=== PATIENT | male | born 1960 | race Caucasian/White ===

== ENCOUNTER → 2024-05-21 06:32 | Day surgery (SDC) | payer BC, SELFPAY | LOC: GI 06:32 | PROVIDERS: ATTENDING PHYSICIAN Internal Medicine | DX: Z12.11 Encounter for screening for malignant neoplasm of colon (principal); Z86.010 Personal history of colon polyps; K64.9 Unspecified hemorrhoids; K57.30 Diverticulosis of large intestine without perforation or abscess without bleeding; N40.0 Benign prostatic hyperplasia without lower urinary tract symptoms | CPT/HCPCS: G0105 ==

== ENCOUNTER 2024-12-11 06:36 | Day surgery (SDC) | payer BC, SELFPAY | END 2024-12-11 12:41 | disposition home or self-care (01) | LOC: GI 06:36 | PROVIDERS: ATTENDING PHYSICIAN Internal Medicine | DX: R13.10 Dysphagia, unspecified (principal); R12 Heartburn; K44.9 Diaphragmatic hernia without obstruction or gangrene; K21.01 Gastro-esophageal reflux disease with esophagitis, with bleeding; K31.89 Other diseases of stomach and duodenum; K29.50 Unspecified chronic gastritis without bleeding; K22.10 Ulcer of esophagus without bleeding | CPT/HCPCS: 43239; 88305; 88342 ==

== ENCOUNTER 2025-02-12 06:28 | Day surgery (SDC) | payer BC, SELFPAY | END 2025-02-12 11:27 | disposition home or self-care (01) | LOC: GI 06:28 | PROVIDERS: ATTENDING PHYSICIAN Internal Medicine | DX: R12 Heartburn (principal); K20.90 Esophagitis, unspecified without bleeding; K22.89 Other specified disease of esophagus; K44.9 Diaphragmatic hernia without obstruction or gangrene; K22.70 Barrett's esophagus without dysplasia | CPT/HCPCS: 43239; 88305 ==